=== PATIENT | female | born 1980 | race Caucasian/White ===

== ENCOUNTER 2017-01-02 10:19 | Emergency (ER) | payer BC ==
[~2017-01-02] VITALS: Ht 157.5 cm; Wt 72.6 kg
[2017-01-02 10:58] LABS: microscopic required? NO
[2017-01-02 11:26] LABS: urine erythrocyte NEGATIVE (NEGATIVE)
[2017-01-02 12:58] VITALS: BP 113/70
== END 2017-01-02 13:40 | disposition home or self-care (01) ==
LOC: ED 10:19
PROVIDERS: Emergency Medicine Emergency Medical Services
DX: O20.0 Threatened abortion (principal); Z3A.01 Less than 8 weeks gestation of pregnancy
CPT/HCPCS: 36415; Q0092